=== PATIENT | male | born 1950 | race Caucasian/White ===

== ENCOUNTER 2020-01-29 05:58 | Day surgery (SDC) | payer OTHER, BC ==
[2020-01-26 15:33] VITALS: BMI 29.5
[2020-01-29 11:40] VITALS: TEMP 97.7
[2020-01-29 12:40] VITALS: BP 146/85; PULSE 62
== END 2020-01-29 12:59 | disposition home or self-care (01) ==
LOC: JASU-ENDO 05:58
PROVIDERS: ATTEND Internal Medicine Cardiovascular Disease
PROC: 5A2204Z Restoration of Cardiac Rhythm, Single (ICD-10-PCS; principal; 2020-01-29 10:00)
DX: I48.91 Unspecified atrial fibrillation (principal)
CPT/HCPCS: 82962; 92960; 93005; 93010